=== PATIENT | male | born 1955 | race Caucasian/White ===

== ENCOUNTER 2016-08-24 11:00 | Inpatient (IN) | payer OTHER ==
[~2016-08-24] VITALS: Ht 180.3 cm; Wt 115.0 kg
--- NOTE | ~2016-08-24 | OR ---
PATIENT'S NAME: ROCCO GARCIA [facility] AGE: 61 Y [address] 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 OPERATION: Left total hip arthroplasty. ANESTHESIA: Spinal anesthesia plus subcutaneous and periarticular local anesthesia (ropivacaine with epinephrine and Toradol). ESTIMATED BLOOD LOSS: Approximately 250 cc. DRAIN: None. SPECIMEN: None. COMPLICATIONS: None. IMPLANTS: 1. [place] Trident titanium size 56 mm hemispherical uncemented acetabular shell with one dome hole cover and no screws. 2. Stephanie X3 neutral acetabular polyethylene liner with 36 mm inner diameter. 3. DePuy Oliver size 9 standard offset uncemented femoral component. 4. 36 mm diameter Biolox femoral head with +5 mm neck length. INDICATION FOR SURGERY: Rocco Garcia is a 61-year-old male who presents with advanced femoral acetabular impingement syndrome with secondary degenerative joint disease of the left hip and associated severely compromised activities of daily living. The patient has decided to proceed with hip replacement after having been thoroughly counseled regarding the associated risks, benefits, and limitations. We have specifically reviewed the risks and implications of infection, deep venous thrombosis, pulmonary embolism, mortality, neurovascular complications, blood transfusion (and associated PATIENT'S NAME: ROCCO GARCIA [facility] AGE: 61 Y [address] ROOM: [facility] [address] [place], [place] [address] LOCATION: [facility] ADMIT DATE: 09/06/2016 OR/Procedure Report DISCHARGE DATE: FAMILY PHYSICIAN: Graciela Danielle MD ATTENDING PHYSICIAN: SETH HOANG potential for disease transmission or transfusion reaction), stiffness, instability, leg length discrepancy, mechanical deterioration of the components (due to wear and to loosening), and the potential need for revision. DESCRIPTION OF PROCEDURE: The patient was positioned in a lateral decubitus position with the left side up after administration of anesthesia and prophylactic antibiotics. An axillary roll was placed and the non-operative leg was well padded. The pelvis was locked perpendicularly to the floor on a pegboard. The left hip and entire operative extremity were prepped and draped with vigilant sterile technique. The patient's name as well as the intended operative side and procedure were confirmed with a verbal time-out involving myself, the circulating nurse, the scrub nurse, and the anesthesiologist. The left hip was approached through a standard posterolateral incision. The fascia karen and the gluteus zana fascia were sharply divided in line with the overlying skin incision. The sciatic nerve was identified and was vigilantly protected throughout the entire case. The short external rotators and posterior capsule were divided from their respective femoral insertions and tagged with four #1 Ethibond sutures for later repair. The hip was posteriorly dislocated with combined flexion, adduction, and internal rotation. The femoral neck osteotomy was performed with an oscillating saw. Inspection of the femoral head demonstrated full thickness loss of articular cartilage involving 80% of its weightbearing surface. There is a large osteophyte at its periphery. Circumferential acetabular exposure was obtained. Examination of acetabulum demonstrated a large medial osteophyte. There was full thickness loss of articular cartilage throughout the majority of the acetabular dome. There was degenerative tearing of the acetabular labrum. There was no dysplasia. There were no loose bodies. Remnants of the acetabular labrum were sharply thoroughly excised. The acetabulum was sequentially progressively reamed up to 56 mm with hemispherical power reamers. It should be noted that reaming was performed with the Casabi robotic arm guidance system. The final acetabular shell was impacted into position in 20 degrees of anteversion and 45 degrees of inclination. An excellent press-fit was obtained. No supplemental dome screw fixation was necessary. It should be noted that the acetabular shell was impacted into position using the Polar Roseo robotic arm guidance system. A neutral trial liner was inserted. Attention was next focused upon femoral preparation. The femoral canal initiator was utilized. The femoral canal was reamed by hand to a size 7 and PATIENT'S NAME: ROCCO GARCIA [facility] AGE: 61 Y [address] ROOM: [address] [place], [place] [id number] LOCATION: [facility] ADMIT DATE: 09/06/2016 OR/Procedure Report DISCHARGE DATE: FAMILY PHYSICIAN: Graciela Danielle MD ATTENDING PHYSICIAN: SETH HOANG subsequently on power to a size 9 with tapered conical reamers. Size 9 reamer tightly engaged the endosteal cortex of the proximal femur. On sequentially progressively broached up to a size 9. The size 9 broach obtained excellent axial and rotational stability. Trial reductions with the above specified construct yielded acceptable stability and acceptable reproduction of leg length and offset. All trial components were removed. The final acetabular liner was inserted with excellent circumferential visualization of its locking mechanism to assure adequate deployment. The final femoral component was impacted into position. The femoral component achieved excellent axial and rotational stability. The trunnion of the femoral component was vigilantly protected prior to placement of the femoral head. The trunnion of the femoral component was thoroughly cleaned and dried prior to placement of the femoral head. The incision was thoroughly irrigated with bacteriostatic pulsatile saline lavage multiple times throughout the case. The entire joint space was thoroughly inspected and thoroughly irrigated to assure that there was no residual debris of any sort. A final reduction was then performed. After final reduction, the hip could be firmly externally rotated in full extension and zero degrees of abduction without anterior subluxation. In neutral rotation and zero degrees of abduction, the hip could be firmly flexed to 120 degrees without instability. At 90 degrees of flexion and zero degrees abduction, the hip could be internally rotated to 60 degrees before there was any hint of posterior subluxation. The posterior capsule and short external rotators were repaired through two drill holes in the posterior aspect of the greater trochanter. The fascia karen and gluteus zana fascia were closed with multiple simple and [id number] interrupted # 1 Ethibond and #1 Vicryl sutures. Subcutaneous tissues were thoroughly re-irrigated with bacteriostatic pulsatile saline lavage. Subcutaneous tissues were re-approximated with simple buried interrupted #0 Vicryl sutures. The skin was closed with superficial buried interrupted 2-0 Vicryl sutures followed by a running subcuticular 3-0 Monocryl suture, followed by Octylseal, followed by Steri- Strips with benzoin, followed by an occlusive Mepilex dressing. There were no intra-operative complications. It should be noted that an accessary 5 cm incision was made over the anterior iliac crest through which 3 partially threaded Steinmann pins were placed between the inner and outer tables of the iliac wing in order to anchor the computer navigation tracking array. These 3 pins were removed intact at the PATIENT'S NAME: ROCCO GARCIA [facility] AGE: 61 Y [address] ROOM: [place] [address] LOCATION: [facility] ADMIT DATE: 09/06/2016 OR/Procedure Report DISCHARGE DATE: FAMILY PHYSICIAN: Graciela Danielle MD ATTENDING PHYSICIAN: SETH HOANG conclusion of the case, and the incision was infiltrated with 0.5% Marcaine with epinephrine after thorough irrigation. This incision was closed with simple deep interrupted 2-0 Vicryl followed by superficial buried interrupted 2-0 Vicryl and a running subcuticular 3-0 Monocryl suture, followed by Dermabond, followed by Steri-Strips with benzoin and an occlusive Mepilex dressing. It should be noted that the physician's registered dental assistant rda played an active, integral role throughout this entire operation. By providing expert retraction, they greatly facilitated and expedited safe and effective exposure of the proximal femur and acetabulum for preparation and implantation of the components. They were also actively involved in the patient's positioning, prepping and draping, as well as wound closure. MD MYRA ZAMBRANO/modl /[id number] d: 09/06/16 1802 t: 09/18/16 1004, OPERATIVE SUMMARY
--- NOTE | ~2016-08-24 | DS ---
PATIENT'S NAME: TC HARP [facility] AGE: 61 Y [address] 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 SECONDARY DIAGNOSES: Include, 1. Hypertension. 2. Gastroesophageal reflux disease. PROCEDURE PERFORMED: Left total hip arthroplasty. HISTORY: The patient is a 61-year-old male, who presents with advanced left hip degenerative joint disease and associated severely compromised activities of daily living. The patient has decided to proceed with total left hip arthroplasty after having been thoroughly counseled regarding the risks, benefits, limitations, and alternatives. Please refer to the outpatient clinic notes and admission history and physical for this patient. HOSPITAL COURSE: The patient underwent a total left hip arthroplasty on 09/06/2016 without complications. Spinal anesthesia plus subcutaneous and periarticular local anesthesia was utilized. The patient received 24 hours of perioperative prophylactic antibiotics and remained hemodynamically stable, neurovascularly intact throughout the entire hospital course. The postoperative prophylactic deep venous thrombosis prophylaxis consisted of Xarelto 10 mg, early mobilization and pneumatic compression devices. Daily physical therapy for gait training, transfer training, and reinforcement of hip dislocation precautions were received. The patient progressed well in physical therapy. On the date of discharge, 09/08/2016, the incision at the hip was healing well and showed no signs of infection. DISPOSITION: Home. DISCHARGE ACTIVITY: The patient is to bear weight as tolerated with strict hip dislocation precautions as instructed. There are to be no dressing changes. Dr. Hoang is to be notified immediately if there is any increased pain, fevers, chills, erythema, or drainage. DISCHARGE MEDICATIONS: Include, 1. Xarelto 10 mg, take 1 tablet p.o. daily for DVT prevention. 2. Diazepam 5 mg, take 1/2 tablet to 1 tablet every 6 hours as needed for muscle spasms. PATIENT'S NAME: TC HARP [facility] AGE: 61 Y [address] ROOM: [place] [address] LOCATION: [facility] ADMIT DATE: 09/06/2016 Discharge Summary DISCHARGE DATE: 09/08/2016 FAMILY PHYSICIAN: Graciela Danielle MD ATTENDING PHYSICIAN: Seth Hoang 3. Dilaudid 2 mg, take 1 to 2 tablets p.o. every 4 hours as needed for pain. FOLLOWUP: Followup date is scheduled for Tuesday, September 13, 2016, for initial postoperative evaluation and x-rays at that time. DAVID PRATHER FOR SETH HOANG MD TLB/modl /[id number] P d: 09/14/16 0443 t: 09/28/16 0715, DISCHARGE SUMMARY
--- NOTE | ~2016-08-24 | HP ---
PATIENT'S NAME: TC HARP [facility] AGE: 61 Y [address] ROOM: [place] [address] LOCATION: [facility] ADMIT DATE: 09/06/2016 History & Physical DISCHARGE DATE: FAMILY PHYSICIAN: Graciela Danielle MD ATTENDING PHYSICIAN: SETH HOANG DATE OF SERVICE: CHIEF COMPLAINT: Left hip pain. 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 Seth Hoang for a diagnosis of end-stage DJD, left hip. I am asked to follow the patient for his medical illnesses postop and pain control. When I see the patient postop, he is doing well. No complaints of pain. No nausea, vomiting, or chest pain. CURRENT MEDICATIONS: 1. Aspirin 325 mg a day. 2. Centrum vitamins. 3. Diltiazem ER 120 mg 1 per day, ?if he is taking that now. 4. Etodolac 500 mg 1 per day. 5. Ativan 0.5 mg as needed. 6. Metamucil as needed. 7. Protonix 40 mg a day. ALLERGIES: NO KNOWN DRUG ALLERGIES. PREVIOUS OPERATIONS: History of colon surgery. FAMILY HISTORY: Negative for problems with bleeding disorder or general anesthetic. SOCIAL HISTORY: The patient does not smoke. IMMUNIZATIONS: Unknown. REVIEW OF SYSTEMS: HEENT: Negative. ENDOCRINE: He is not diabetic. No history of thyroid disease. PATIENT'S NAME: TC HARP [place] AGE: 61 Y [address] ROOM: [place] [address] LOCATION: [facility] ADMIT DATE: 09/06/2016 History & Physical DISCHARGE DATE: FAMILY PHYSICIAN: Graciela Danielle MD ATTENDING PHYSICIAN: SETH HOANG LUNGS: No history of asthma. HEART: History of hypertension, ?in the past related to NSAID therapy. GI: Previous colon surgery, unsure of path report. Does have a history of gastroesophageal reflux disease. : No dysuria or frequency. EXTREMITIES: DJD, left hip. NEUROLOGIC: No history of previous stroke or seizure disorder. PHYSICAL EXAMINATION: GENERAL: A pleasant schneider-haired male, who appears younger than his stated age. HEENT: Shows pupils react to light. TMs not visualized. Posterior pharynx is clear. NECK: Unremarkable. No thyroid enlargement. LUNGS: Clear without wheeze or rub. HEART: Shows no murmur, gallop, or rub. ABDOMEN: Soft. No point tenderness or mass. PELVIC/RECTAL: Exam not done. EXTREMITIES: Dressing, left hip. NEUROLOGIC: Grossly intact. No lateralizing signs. ASSESSMENT: 1. End-stage degenerative joint disease, left hip. 2. Status post left total hip arthroplasty today per Dr. Seth Hoang. 3. Gastroesophageal reflux disease. 4. Hypertension related to NSAID therapy. 5. Anxiety. 6. History of previous colon surgery. PLAN: Follow daily. Further treatment as indicated. MD JEFF SKINNER/lonnie /[id number] D: [id number] T: [id number] HISTORY & PHYSICAL
[~2016-08-24 11:00] MED LIST: CELEBREX200 MG PO; DILTIAZEM 24HR120 MG PO
[2016-08-24] MEDS ORDERED: ASPIRIN EC325 MG PO (11:01)
[2016-08-24] MEDS ORDERED: ATIVAN 0.5MG0.5 MG PO (11:01)
[2016-08-24] MEDS ORDERED: CALCIUM 500 +1 EAC4 PO (11:02)
[2016-08-24] MEDS ORDERED: PROBIOTIC1 EAC1 PO (11:03)
[2016-08-24] MEDS ORDERED: METAMUCIL CAPSU1 CAP PO (11:03)
[2016-08-24] MEDS ORDERED: TYLENOL EXTRA500 MG PO (11:04)
--- NOTE | 2016-09-06 16:53 | NUR ---
patient doing well. up to recliner. ambulated to doorway. walker and one assist. csm adequate. mepilex dressing d/i to anterior thigh and lateral thigh. ice bag on . dilaudid last at 1510 has had 2 times since return to floor. pain controlled. voided large amt. last hrly at 1830. dislocation precautions reviewed, 2 pillows between knees
--- NOTE | 2016-09-07 02:54 | NUR ---
Shift Summary: Patient can ambulate with standby assist/walker. Tolerating regular diet well. Voiding without difficulty. Does have GERD and was given Zofran x 1. States he takes reglan PRN at home. He states he will talk to about it when he makes rounds. Patient is a pharmacist. Having good pain control with 1 dilaudid about every 2hr and Valium.
--- NOTE | 2016-09-07 11:17 | NUR ---
Introduced self and CM role to patient and patient's this morning. Patient and state they feel comfortable going back to their home upon discharge. 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 stated that their son and her moved around furniture and set up their shower at home this weekend to prepare for his surgery recovery. Wrote CM name on marker board in case any concerns arise. No current needs or concerns. Plan to discharge home with 's support. CM Manager [employer].
--- NOTE | 2016-09-07 14:24 | NUR ---
Significant Event: AOx3. VSS. CSM WNL. Ice to L) hip. Toradol given this a.m. Dilaudid PO given. Dressing's C/D/I. Takes Reglan PRN. 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 Follow up:
--- NOTE | 2016-09-08 03:44 | NUR ---
Significant Event: Dressing is clean, dry and intact. CSM WNL. 1 assist with transfers. Voids without difficulty. Family at bedside. Dilaudid last at 0133. Toradol at 2241. Valium 2.5mg at 2058. Follow up:
[2016-09-08] MEDS ORDERED: COLACE100 MG PO (11:08)
[2016-09-08] MEDS ORDERED: MIRALAX17 GM PO (11:11)
[2016-09-08] MEDS ORDERED: NEURONTIN300 MG PO (11:13)
[2016-09-08] MEDS ORDERED: XARELTO10 MG PO (11:16)
[2016-09-08] MEDS ORDERED: VALIUM5 MG PO (11:17)
[2016-09-08] MEDS ORDERED: DILAUDID 2MG(HYD2 MG PO (11:18)
--- NOTE | 2016-09-08 13:17 | NUR ---
Patient was AOx3. VSS. Temp was 98.7 at 1300. Patient was given 1 tab of 2mg dilaudid and 15mg IV Toradol prior to dismissal at 1300. Dressing was C/D/I. IV was removed in left arm and wrapped with coband. Patient was wheeled out to [facility] for dismissal home with at 1315.
== END 2016-09-08 13:13 | disposition disaster alternative care site (69) | DRG 470 ==
LOC: G3N 09-06 06:18
PROVIDERS: ADMIT Orthopaedic Surgery
PROC: 8E0Y0CZ Robotic Assisted Procedure of Lower Extremity, Open Approach (ICD-10-PCS; principal; 2016-09-06)
PROC: 0SRB04A Replacement of Left Hip Joint with Ceramic on Polyethylene Synthetic Substitute, Uncemented, Open Approach (ICD-10-PCS; principal; 2016-09-06)
DX: M16.7 Other unilateral secondary osteoarthritis of hip (principal); I10 Essential (primary) hypertension; M25.852 Other specified joint disorders, left hip; R26.2 Difficulty in walking, not elsewhere classified; K21.9 Gastro-esophageal reflux disease without esophagitis; Z79.82 Long term (current) use of aspirin
CPT/HCPCS: C1713; C1776; J0690; J1100; J1170; J1885; J2001; J2405; J2795; J7030; J7120